=== PATIENT | female | born 1980 | race Caucasian/White ===

== ENCOUNTER 2022-04-08 10:24 | Emergency (ER) | payer BC, SELFPAY ==
[2022-04-08 10:34] VITALS: BP 151/95; PULSE 87; RESP 20; TEMP 37; O2SAT 100
--- NOTE | 2022-04-08 11:30 | ED.GENADULT ---
HPI - General Adult General Chief complaint: Ear Stated complaint: Ears Source: patient Mode of arrival: ambulatory Limitations: no limitations History of Present Illness HPI narrative: Patient presents for evaluation of sick symptoms. She indicates she was diagnosed with an ear infection was placed on amoxicillin. She went to an urgent care on 04/03/2022 and her medication was changed to Augmentin. She reports persistent pain in both ears, right greater than left. She also reports decreased hearing in both ears. Symptoms have been particularly bothersome over the last 3-4 days. She reports a cough which is productive of green sputum. She has some mild shortness of breath. She has an underlying history of asthma and has been using her albuterol every 4 hours as needed. No fever, chills, nausea, vomiting. Several family members have had flu and strep recently. She does not smoke. She has had cough for the past. She is taking DayQuil, NyQuil, Mucinex for her symptoms. No additional complaints or concerns. Related Data Home Medications Medication Instructions Recorded Confirmed Ventolin 04/08/22 Vyepti 04/08/22 amoxicillin 875 mg-potassium tablet 04/08/22 clavulanate 125 mg tablet aspirin 04/08/22 hydroxychloroquine 04/08/22 lansoprazole 30 mg capsule,delayed mg 04/08/22 release (Prevacid) loratadine 04/08/22 metformin 04/08/22 trazodone 04/08/22 Allergies Allergy/AdvReac Type Severity Reaction Status Date / Time lamotrigine [From Lamictal] Allergy Rash Verified 04/08/22 10:36 Review of Systems Review of Systems: CONSTITUTIONAL: Denies fever, chills, or sweats. EYES: Denies visual changes, redness, or discharge. ENT: Reports bilateral ear pain and hearing loss CARDIOVASCULAR: Denies chest pain, palpitations, or edema. RESPIRATORY: Reports productive cough of yellow/green sputum. Reports mild shortness of breath. GASTROINTESTINAL: Denies abdominal pain, nausea, vomiting, or diarrhea. GENITOURINARY: Denies dysuria or hematuria. SKIN: Denies rash or itching. MUSCULOSKELETAL: Denies back pain, joint pain, or myalgia. NEUROLOGIC: Denies headache, numbness, dizziness, or weakness. PSYCHIATRIC: Denies anxiety or depression. [facility] Past Medical History Medical History Asthma Surgical History Surgical History No pertinent past surgical history Family History Family History Mother Family history non-contributory Social History Social History Smoking status: Never smoker Substance use: never Gender identity (if verbalized by the patient): Female Sexual Orientation (if Verbalized by the Patient): Straight or Heterosexual Spiritual care concerns: No Exam Narrative: GENERAL: Well-appearing, well-nourished, and in no acute distress. HEAD: Normocephalic, atraumatic. EYES: PERRLA and EOMI. ENT: Nares clear, no rhinorrhea or epistaxis. Mucous membranes moist. Oropharynx without tonsillar hypertrophy exudate or other lesions. Right tympanic membrane erythema with thick yellow drainage behind right TM NECK: Supple. No adenopathy or masses. No carotid bruits or JVD CHEST: Clear to auscultation. No respiratory distress. No wheezes rales or rhonchi HEART: Regular rate and rhythm. No murmur heard. Normal peripheral pulses. ABDOMEN: Soft, nontender, nondistended, normal active bowel sounds. EXTREMITIES: Normal range of motion. No edema. SKIN: Warm, dry, no rash. NEURO: No focal deficits. Alert and oriented x3. PSYCH: Normal mood and affect. Course Course Emergency Course: This is a 41-year-old female who presented for evaluation of ear pain currently on Augmentin for otitis media. I offered to check COVID and influenza which she declined.
== END 2022-04-08 11:34 | disposition home or self-care (01) ==
PROVIDERS: Emergency Provider Nurse Practitioner
DX: H66.91 Otitis media, unspecified, right ear (principal); J45.909 Unspecified asthma, uncomplicated
CPT/HCPCS: 99213; G0463